=== PATIENT | male | born 1975 | race Caucasian/White ===

== ENCOUNTER 2016-09-12 15:09 | Emergency (ER) | payer BC, OTHER ==
[2016-09-12] MEDS ORDERED: KETOROLAC TROMETHAMINE 60 MG/2 ML VIAL IM ONE ×2 (16:04→16:31)
[2016-09-12] MEDS ORDERED: oxyCODONE HCL/ACETAMINOPHEN 1 TAB TABLET PO ONE (16:05)
--- NOTE | 2016-09-12 16:27 | ERNOTE ---
Lower Extremity HPI - Narrative Date of Service: 09/12/16 - General Lower Extremities Pain: knee: right Time Seen by Provider: 09/12/16 15:52 Source: patient, family Exam Limitations: no limitations - Immun/Allergies/Home Medications Immunizations: IMMUNIZATION HX Immunizations Up to Date Yes History of Influenza Vaccine Yes Hx Pneumococcal Vaccination Yes Allergies/Adverse Reactions: Allergies Allergy/AdvReac Type Severity Reaction Status Date / Time No Known Allergies Allergy Unverified 09/02/14 18:56 Home Medications: HOME MEDICATIONS Diflunisal [Dolobid] 500 mg PO TID #30 tablet 09/12/16 [Last Taken Unknown] oxyCODONE HCL/ACETAMINOPHEN [Percocet 5-325 mg Tablet] 2 each PO TID #60 tablet 09/12/16 [Last Taken Unknown] - History of Present Illness Narrative: Right knee pain. Trouble with pain, better when standing up with knee extended , prior to arthroscopic knee surgery 08/26/16. After surgery, pain was improved for a while. However, even then, had to sleep with his right leg extended or there would be a lot of pain. The arthroscopic surgery worked on the lateral components of his knee. He had a recheck recently with his surgeon, Dr. France , who works out of [facility] at [facility] in [place]. More recently, his knee will cause him excruciating pain unless he is standing on it , with it completely extended. He has been taking lots of Ibuprofen without relief. He had a few [place] left, and two days ago he took three of them to try to obtain relief, and was able to sleep two hours, until the pain woke him again. There has been no locking of the knee, no fever, chills, or sweats. I called [facility] and spoke with Dr. Cook, air route controller ortho. He recommends office vist with Dr. France on Tuesday. Dr. Cook will speak with Dr. France's editorial assistant, and asks that the patient call Dr. France's office at 8 AM tomorrow to obtain an appt for this coming Tuesday. I explained to Dr. Cook what we were doing with the patient here in the ER, and he thought this was a reasonable approach. Occurred: other Review of Systems - Review of Systems Constitutional: Present: no symptoms reported EYE: Present: no symptoms reported ENT: Present: no symptoms reported Respiratory: Present: no symptoms reported Cardiology: Present: no symptoms reported Gastrointestinal/Abdominal: Present: no symptoms reported Genitourinary: Present: no symptoms reported Musculoskeletal: Present: See HPI Skin: Present: no symptoms reported Neurological: Present: no symptoms reported Endocrine: Present: no symptoms reported Hematologic/Lymphatic: Present: no symptoms reported Psych: Present: no symptoms reported All Other Systems: All systems neg except as marked - Patient's Past Medical History Patient History - Medical: No pertinent hx Patient History - Cardiac/Respiratory: No pertinent hx Patient History - Cancer: No Hx of Cancer Patient History - Surgical Procedures: Cholecystectomy, Other - left knee arthroscopy 25 years ago. Patient History - Other: None - Social History Living Situations: spouse Abuse History: No History of abuse Psych History: No pertinent hx Smoking Status: Never smoker Do you dip or chew tobacco: No Alcohol Use: occasionally Drug Use: none - Immunizations Immunizations Up to Date: Yes Hx Pneumococcal Vaccination: Yes History of Influenza Vaccine: Yes Physical Exam - Physical Exam General Appearance: Present: wd/wn, alert, no apparent distress - unless his knee starts to hurt, then he is in distress. Eye Exam: Normal inspection: bilateral, PERRL: bilateral, EOMI: bilateral Ears, Nose, Throat: Present: normal ENT inspection Neck: Present: normal inspection Respiratory: Present: no respiratory distress Cardiovascular/Chest: Present: regular rate, rhythm Extremity Exam: Present: joint swelling - small effusion right knee, no bruising , no redness, no heat. knee not tender anywhere, nor is right thigh or right lower leg. Neurological Exam: Present: alert, oriented, normal mood/affect, no motor/ sensory deficits Skin Exam: Present: normal color, warm/dry ED Progress - Results and Orders Patient's Lab Results:: I have reviewed the patient's lab results. - Vital Signs Patient's Vital Signs:: I have reviewed the patient's vital signs. Vital Signs: Vital Signs 09/12/16 09/12/16 15:09 15:12 Temperature 37.8 C H 37.3 C Pulse Rate 80 Respiratory 14 Rate Blood Pressure 110/64 124/77 O2 Sat by Pulse 99 Oximetry - X-Ray X-Ray #1 X-Ray: knee Interpretation: Interp. by me - normal - Progress/Reassessment Chief Complaint: Lower Extremity Pain/ Injury Progress:: Improved Departure Clinical Impression: Right knee pain Qualifiers: Chronicity: acute Qualified Code(s): M25.561 - Pain in right knee - Departure Disposition: Home self-care Condition: Good Instructions: Musculoskeletal Pain Additional Instructions: Call your bone doctor's office tomorrow morning. Request an appt with your doctor there for this coming Tuesday. Explain that I spoke with the air route controller doctor, Doctor Cook, who recommended that this occur and said that he would communicate this to his editorial assistant. Prescriptions: Diflunisal [Dolobid] 500 mg PO TID #30 tablet oxyCODONE HCL/ACETAMINOPHEN [Percocet 5-325 mg Tablet] 2 each PO TID #60 tablet
[2016-09-12] MEDS ORDERED: oxyCODONE HCL/ACETAMINOPHEN 1 TAB TABLET ONE (16:31)
[2016-09-12 16:50] LABS: Hematocrit 42.6 % (42.0-52.0); Hemoglobin 14.6 gm/dL (13.5-18.0); Mean Cell Volume 88.8 fl (78-100); Mean Corpuscular Hemoglobin 30.4 pg (27-31); Mean Corpuscular Hgb Conc 34.3 g/dl (32-36); Mean Platelet Volume 9.8 fl (6.0-9.5); Neutrophil # 4.3 K/mm3 (1.3-6.0); Neutrophil % 60.5 % (42-75.0); Platelet Count 232 K/mm3 (150-450); Red Cell Distribution Width 12.3 % (11.5-14.0); White Blood Count 7.2 K/mm3 (4.0-10.5)
[2016-09-12 17:00] LABS: Albumin * 4.2 gm/dl (3.4-5.0); Anion Gap 12.2 mmol/L (6.8-13.8); BUN/Creatinine Ratio 16.8 (9.0-21.6); Bilirubin, Total 0.4 mg/dL (0.0-1.1); Ca. Corrected For Albumin 8.3 mg/dL (8.4-10.2); Calcium * 8.8 mg/dL (7.9-10.9); Potassium 4.2 mmol/L (3.4-4.6); Total Protein 7.3 gm/dL (6.2-8.2)
[2016-09-12 17:28] VITALS: BP 128/82
== END 2016-09-12 17:45 | disposition home or self-care (01) ==
LOC: ER 15:09
DX: M25.561 Pain in right knee (principal)